=== PATIENT | male | born 1960 | race Caucasian/White ===

== ENCOUNTER 2023-09-04 18:00 | Emergency (ER) | payer OTHER ==
[~2023-09-04] VITALS: Ht 170.2 cm; Wt 97.5 kg
[2023-09-04] MEDS ORDERED: CYCLOBENZAPRINE HCL 10 MG TABLET PO ONE (22:00)
[2023-09-04] MEDS ORDERED: HYDROCODONE/ACETAMINOPHEN 10/325 MG TAB PO ONE (22:00)
[2023-09-04] MEDS ORDERED: IBUPROFEN 800 MG TAB PO ONE (22:00)
[2023-09-04 22:23] VITALS: BP 128/82; PULSE 62; RESP 16; O2SAT 95
[2023-09-04] MEDS ORDERED: IBUP-2077 PO (22:28)
[2023-09-04] MEDS ORDERED: CYCL-309 PO (22:28)
[2023-09-04] MEDS ORDERED: METH4TAB3 PO (22:28)
== END 2023-09-04 23:08 | disposition left against medical advice (07) ==
LOC: EDH 18:00
DX: M54.31 Sciatica, right side (principal)

== ENCOUNTER → 2023-09-13 | Outpatient (CLI) | payer OTHER ==
[~2023-09-13] MED LIST: CYCL-309 PO; IBUP-2077 PO; METH4TAB3 PO
== END | disposition home or self-care (01) ==
LOC: RAH 10:45
PROVIDERS: ATTEND Family Medicine
DX: M47.26 Other spondylosis with radiculopathy, lumbar region (principal); M51.16 Intervertebral disc disorders with radiculopathy, lumbar region; N28.1 Cyst of kidney, acquired; M48.061 Spinal stenosis, lumbar region without neurogenic claudication
CPT/HCPCS: 72148